=== PATIENT | male | born 1960 ===

== ENCOUNTER 2020-04-29 07:44 | Outpatient (CLI) | payer OTHER | END 2020-04-29 23:59 | disposition home or self-care (01) | LOC: ROC 07:44 | PROVIDERS: ATTEND Radiology Radiation Oncology | DX: C83.33 Diffuse large B-cell lymphoma, intra-abdominal lymph nodes (principal) | CPT/HCPCS: 99214; G0463 ==

== ENCOUNTER 2020-06-24 08:57 | Outpatient (CLI) | payer OTHER | END 2020-06-24 23:59 | disposition home or self-care (01) | LOC: ROC 08:57 | PROVIDERS: ATTEND Radiology Radiation Oncology | DX: C83.33 Diffuse large B-cell lymphoma, intra-abdominal lymph nodes (principal) | CPT/HCPCS: 99212; G0463 ==